=== PATIENT | male | born 1995 | race Two or more races ===

== ENCOUNTER 2016-08-05 00:45 | Emergency (ER) | payer OTHER ==
[~2016-08-05] VITALS: Ht 175.3 cm; Wt 75.7 kg
[2016-08-05 01:00] VITALS: BP 110/68
[2016-08-05] MEDS ORDERED: IBUPROFEN 600 MG TAB PO ONE (03:45)
[2016-08-05] MEDS ORDERED: SODIUM CHLORIDE 0.9% 1,000 ML IV ONE (03:45)
== END 2016-08-05 04:43 | disposition home or self-care (01) ==
LOC: ER 00:45
DX: M54.5 Low back pain (principal); E86.0 Dehydration; R51 Headache
CPT/HCPCS: 96360